=== PATIENT | female | born 1980 | race Two or more races ===

== ENCOUNTER 2017-09-22 15:50 | Emergency (ER) | payer OTHER ==
[~2017-09-22] VITALS: Ht 165.1 cm; Wt 63.5 kg
[~2017-09-22 15:50] MED LIST: CIPRO500 MG PO; PYRIDIUM200 MG PO; SEPTRA DS TABLE1 TAB PO
== END 2017-09-22 17:56 | disposition home or self-care (01) ==
LOC: ER 15:50
DX: N89.8 Other specified noninflammatory disorders of vagina (principal)